=== PATIENT | female | born 1965 | race African-American/Black ===

== ENCOUNTER 2023-03-25 11:37 | Inpatient (IN) | payer OTHER ==
[2023-03-25 12:07] VITALS: BMI 24.0
[2023-03-25] MEDS ORDERED: MAG HYDROX/AL HYDROX/SIMETH 30 ML UNIT-DOSE CUP PO PRN (12:52)
[2023-03-25] MEDS ORDERED: guaiFENesin 600 MG TABLET.ER (FP) PO PRN (12:52)
[2023-03-25] MEDS ORDERED: BENZOCAINE/MENTHOL (CHLORASEPTIC ) LOZENGE MM PRN (12:52)
[2023-03-25] MEDS ORDERED: MAGNESIUM HYDROX 2400MG/30ML ORAL SUSPENSION 30 ML CUP PO PRN (12:52)
[2023-03-25] MEDS ORDERED: IBUPROFEN 600 MG TABLET (FP) PO PRN (12:52)
[2023-03-25] MEDS ORDERED: NALOXONE HCL 0.4 MG/ML VIAL IM PRN (12:52)
[2023-03-25] MEDS ORDERED: IBUPROFEN 400 MG TABLET (FP) PO PRN (12:52)
[2023-03-25] MEDS ORDERED: BENZONATATE 200 MG CAPSULE PO PRN (12:52)
[2023-03-25] MEDS ORDERED: LOPERAMIDE HCL 2 MG CAPSULE PO PRN (12:52)
[2023-03-25] MEDS ORDERED: COLLOIDAL OATMEAL 1 BAR EACH TP PRN (12:52)
[2023-03-25] MEDS ORDERED: NALOXONE HCL (KLOXXADO) 8 MG SPRAY NS PRN (12:52)
[2023-03-25] MEDS ORDERED: AMMONIUM LACTATE 12% LOTION 225 GM BOTTLE TP PRN (12:52)
[2023-03-25] MEDS ORDERED: POLYETHYLENE GLYCOL (HEALTHYLAX) 3350 17 GM PACKET PO PRN (12:52)
[2023-03-25] MEDS ORDERED: ACETAMINOPHEN 325 MG TABLET (FP) PO PRN (12:52)
[2023-03-25] MEDS: hydrOXYzine PAMOATE 25 MG CAPSULE (FP) PO PRN ×2 (15:00→21:48)
[2023-03-25] MEDS: PRENATAL VITAMINS W/ FOLIC ACID TABLET (FP) PO SCH (15:00)
[2023-03-25] MEDS ORDERED: TUBERCULIN PPD 5 TU/0.1ML VIAL ID ONE (15:00)
[2023-03-25] MEDS ORDERED: hydrOXYzine PAMOATE 25 MG CAPSULE (FP) PO ONE (15:04)
[2023-03-25] MEDS ORDERED: PRENATAL VITAMINS W/ FOLIC ACID TABLET (FP) PO ONE (15:04)
[2023-03-25] MEDS ORDERED: HYDROCHLOROTHIAZIDE 25 MG TABLET (FP) PO SCH (16:15)
[2023-03-25 19:42] LABS: HEMATOCRIT 39.6 % (32.4-45.2); MCH 26.7 pg (25.7-33.7); MCHC 32.8 g/dl (32.0-36.0); MEAN CELL VOLUME 81.4 fl (80-96); MEAN PLT VOLUME 8.1 fl (7.5-11.1); PLATELET COUNT 282 10^3/uL (134-434); RBC 4.86 M/mm3 (3.60-5.2); RDW 16.4 % (11.6-15.6)
[2023-03-25 19:43] LABS: POTASSIUM 4.4 mmol/L (3.5-5.1)
[2023-03-25 19:53] LABS: CALCIUM 9.5 mg/dL (8.5-10.1)
[2023-03-25 19:54] LABS: ALBUMIN 3.4 g/dl (3.4-5.0); BLOOD UREA NITROGEN 26.3 mg/dL (7-18)
[2023-03-25 19:57] LABS: CREATININE 0.9 mg/dL (0.55-1.3)
[2023-03-25 19:58] LABS: TOT PROT 6.8 g/dl (6.4-8.2)
[2023-03-25 19:59] LABS: BILIRUBIN,TOTAL 0.2 mg/dL (0.2-1)
[2023-03-25 20:12] LABS: SYPHILIS W/ RPR CONF NON-REACTIVE (NONREACTIVE)
[2023-03-25] MEDS: THIAMINE HCL 100 MG TABLET (FP) PO SCH (21:48)
[2023-03-25] MEDS: MELATONIN 5 MG TABLETS PO SCH (21:49)
[2023-03-25] MEDS: cloNIDine HCL 0.1 MG TABLET PO PRN (22:04)
[2023-03-26] MEDS: PRENATAL VITAMINS W/ FOLIC ACID TABLET (FP) PO SCH (10:23)
[2023-03-26] MEDS: cloNIDine HCL 0.1 MG TABLET PO PRN (10:24)
[2023-03-26] MEDS: DIVALPROEX SODIUM 250 MG TABLET E.C. PO SCH ×2 (13:15→21:26)
[2023-03-26 17:01] LABS: PH,URINE 5.5 (5.0-8.0); URINE APPEARANCE CLEAR; URINE BILIRUBIN NEGATIVE (NEGATIVE); URINE COLOR YELLOW; URINE GLUCOSE (UA) NEGATIVE (NEGATIVE); URINE KETONE NEGATIVE (NEGATIVE); URINE LEUK ESTERASE NEGATIVE (NEGATIVE); URINE NITRITE NEGATIVE (NEGATIVE); URINE PROTEIN NEGATIVE (NEGATIVE); URINE UROBILINOGEN 0.2 mg/dL (0.2-1.0)
[2023-03-26] MEDS: MELATONIN 5 MG TABLETS PO SCH (21:26)
[2023-03-26] MEDS: THIAMINE HCL 100 MG TABLET (FP) PO SCH (21:26)
[2023-03-26] MEDS: HALOPERIDOL 5 MG TABLET PO SCH (21:26)
[2023-03-27] MEDS: PRENATAL VITAMINS W/ FOLIC ACID TABLET (FP) PO SCH (09:47)
[2023-03-27] MEDS: HYDROCHLOROTHIAZIDE 25 MG TABLET (FP) PO SCH (09:47)
[2023-03-27] MEDS: DIVALPROEX SODIUM 250 MG TABLET E.C. PO SCH ×2 (09:47→21:08)
[2023-03-27] MEDS: SERTRALINE HCL 25 MG TABLET (FP) PO SCH (12:11)
[2023-03-27] MEDS: HALOPERIDOL 5 MG TABLET PO SCH ×2 (12:11→21:08)
[2023-03-27] MEDS: MELATONIN 5 MG TABLETS PO SCH (21:08)
[2023-03-27] MEDS: THIAMINE HCL 100 MG TABLET (FP) PO SCH (21:08)
[2023-03-28] MEDS: HYDROCHLOROTHIAZIDE 25 MG TABLET (FP) PO SCH (09:51)
[2023-03-28] MEDS: SERTRALINE HCL 25 MG TABLET (FP) PO SCH (09:51)
[2023-03-28] MEDS: DIVALPROEX SODIUM 250 MG TABLET E.C. PO SCH (09:51)
[2023-03-28] MEDS: PRENATAL VITAMINS W/ FOLIC ACID TABLET (FP) PO SCH (09:51)
[2023-03-28] MEDS: HALOPERIDOL 5 MG TABLET PO SCH ×2 (09:51→21:50)
[2023-03-28] MEDS: cloNIDine HCL 0.1 MG TABLET PO PRN (09:53)
[2023-03-28] MEDS: THIAMINE HCL 100 MG TABLET (FP) PO SCH (21:49)
[2023-03-28] MEDS: MELATONIN 5 MG TABLETS PO SCH (21:50)
[2023-03-28] MEDS: DIVALPROEX SODIUM 500 MG TABLET E.C. PO SCH (21:52)
[2023-03-29] MEDS: SERTRALINE HCL 25 MG TABLET (FP) PO SCH (09:37)
[2023-03-29] MEDS: PRENATAL VITAMINS W/ FOLIC ACID TABLET (FP) PO SCH (09:37)
[2023-03-29] MEDS: DIVALPROEX SODIUM 250 MG TABLET E.C. PO SCH (09:38)
[2023-03-29] MEDS: HYDROCHLOROTHIAZIDE 25 MG TABLET (FP) PO SCH (09:39)
[2023-03-29] MEDS: HALOPERIDOL 5 MG TABLET PO SCH ×2 (09:39→21:27)
[2023-03-29] MEDS: THIAMINE HCL 100 MG TABLET (FP) PO SCH (21:26)
[2023-03-29] MEDS: DIVALPROEX SODIUM 500 MG TABLET E.C. PO SCH (21:27)
[2023-03-29] MEDS: MELATONIN 5 MG TABLETS PO SCH (21:27)
[2023-03-29] MEDS: hydrOXYzine PAMOATE 25 MG CAPSULE (FP) PO PRN (21:27)
[2023-03-30] MEDS: PRENATAL VITAMINS W/ FOLIC ACID TABLET (FP) PO SCH (10:12)
[2023-03-30] MEDS: DIVALPROEX SODIUM 250 MG TABLET E.C. PO SCH (10:13)
[2023-03-30] MEDS: HYDROCHLOROTHIAZIDE 25 MG TABLET (FP) PO SCH (10:13)
[2023-03-30] MEDS: HALOPERIDOL 5 MG TABLET PO SCH ×2 (10:14→21:04)
[2023-03-30] MEDS: SERTRALINE HCL 25 MG TABLET (FP) PO SCH (10:15)
[2023-03-30] MEDS: DIVALPROEX SODIUM 500 MG TABLET E.C. PO SCH (21:04)
[2023-03-30] MEDS: THIAMINE HCL 100 MG TABLET (FP) PO SCH (21:04)
[2023-03-30] MEDS: MELATONIN 5 MG TABLETS PO SCH (21:04)
[2023-03-31 07:31] VITALS: RESP 16; TEMP 97.5
[2023-03-31 09:10] VITALS: BP 134/64; PULSE 67
[2023-03-31] MEDS: DIVALPROEX SODIUM 250 MG TABLET E.C. PO SCH (10:40)
[2023-03-31] MEDS: HALOPERIDOL 5 MG TABLET PO SCH (10:40)
[2023-03-31] MEDS: SERTRALINE HCL 25 MG TABLET (FP) PO SCH (10:41)
[2023-03-31] MEDS: PRENATAL VITAMINS W/ FOLIC ACID TABLET (FP) PO SCH (10:41)
[2023-03-31] MEDS: HYDROCHLOROTHIAZIDE 25 MG TABLET (FP) PO SCH (10:41)
== END 2023-03-31 11:15 | disposition home or self-care (01) | DRG 772 ==
LOC: YASAS 11:37 → Y5N 14:16
PROVIDERS: ADMIT Allergy & Immunology; ATTEND Psychiatry & Neurology Pain Medicine
PROC: HZ42ZZZ Group Counseling for Substance Abuse Treatment, Cognitive-Behavioral (ICD-10-PCS; principal; 2023-03-25)
DX: F10.20 Alcohol dependence, uncomplicated (principal); F14.20 Cocaine dependence, uncomplicated; F12.20 Cannabis dependence, uncomplicated; F25.9 Schizoaffective disorder, unspecified; F31.9 Bipolar disorder, unspecified; I10 Essential (primary) hypertension; J45.909 Unspecified asthma, uncomplicated; Z96.642 Presence of left artificial hip joint; Z87.19 Personal history of other diseases of the digestive system; Z87.891 Personal history of nicotine dependence; Z59.01 Sheltered homelessness; Z88.0 Allergy status to penicillin; Z88.6 Allergy status to analgesic agent
CPT/HCPCS: 36415; 80053; 81003; 85027; 86780; 86803; 87635; 93005; 93010